=== PATIENT | female | born 1955 | race Caucasian/White ===

== ENCOUNTER 2023-07-29 06:35 | Emergency (ER) | payer OTHER, SELFPAY ==
[2023-07-29] VITALS (7 sets, daily range): BP systolic 117–164; BP diastolic 68–86
--- NOTE | 2023-07-29 06:48 | ED.GENMED ---
History of Present Illness
<Atif Moulton Jr., PA-C - Last Filed: 07/29/23 12:07>
General
Chief Complaint: Abdominal Pain
Source: patient and spouse
Exam Limitations: none
Time Seen by Provider: 07/29/23 07:02
Nursing documentation reviewed up to this point in time: agreed with
History of Present Illness
History of Present Illness:
67-year-old female with past medical history of hypertension GERD deafness presenting to the emergency department today with concerns of right-sided abdominal pain associated burning as well since last night. Not particularly after any specific
meal has associated nausea no vomiting. No changes in bowel movements. Has had some intermittent symptoms similar in the past. Claims this is slightly worse than usual.
<Arik Felton DO - Last Filed: >
Travel History
Have you had any contact with someone who has COVID-19?: No
Do you have any symptoms of coronavirus? Fever > 100 degrees, chills, cough, shortness of breath, sore throat, loss of taste or smell, muscle aches, or headache?: No
Review of Systems
<Atif Moulton Jr., PA-C - Last Filed: 07/29/23 12:07>
Review of Systems
Allergies reviewed?: Yes
All Other Systems: ROS reviewed and negative except as documented in HPI and ROS
Phy Exam
<Atif Moulton Jr., PA-C - Last Filed: 07/29/23 12:07>
Physical Exam
Physical Exam:
GENERAL: Alert , in no apparent distress
EYE: pupils equal and reactive
NECK: Supple, no significant adenopathy.
ENT: o/p clr, mmm.
CARDIAC: Regular rate and rhythm .
LUNGS: Clear breath sounds bilaterally, no acute respiratory distress, no wheezes/rales/rhonchi
ABDOMEN: Tender palpation to the right side of the abdomen mainly to the right mid abdomen and right lower minimal discomfort to the right upper minimal pain to the epigastric region no pain to the left side of the abdomen.
NEUROLOGICAL: Alert and oriented, no focal neuro deficits
SKIN: Warm and dry, skin intact.
MUSCULOSKELETAL: No edema, well perfused.
PSYCH: Normal and appropriate interaction.
Course
<Atif Moulton Jr., PA-C - Last Filed: 07/29/23 12:07>
Orders/Labs/Results
Orders:
Orders
07/29/23 06:47
Electrocardiogram (*1) Urgent
Reason for Study: Abdominal Pain
EKG- Treatment ONCE
07/29/23 07:25
CT Abd/pel W Iv And Oral Contr Urgent
Comment:
Reason For Exam: right sided abd pain, s/p appy
0.9% Sodium Chloride 1000 ml [Nss] 1,000 ml IV BOLUS
Famotidine [Pepcid] 20 mg IV NOW STA
Iohexol [Omnipaque] See Protocol PO NOW STA
Ondansetron Injectable [Zofran] 4 mg IV NOW STA
07/29/23 07:56
Complete Blood Count/With Diff Urgent
Comprehensive Metabolic Panel Urgent
Lipase Urgent
07/29/23 09:20
Urinalysis Reflex To Culture Urgent
Date Specimen was Collected: 07/29/23
Time Specimen was Collected: 08:51
Urine Microscopic Reflex Cult Urgent
Urine Culture Urgent
FREDY Source: U
Specimen Description:
Date Specimen was Collected: 07/29/23
Time Specimen was Collected: 08:51
07/29/23 11:47
Mag Hydrox/Al Hydrox/Simeth [Maalox] 30 ml Phenobarb/Hyoscy/Atropine/Scop [] 10 ml PO NOW
07/29/23 11:57
Mag Hydrox/Al Hydrox/Simeth [Maalox] 30 ml .ROUTE .[facility]
Phenobarb/Hyoscy/Atropine/Scop [] 10 ml .ROUTE .[facility] ONE
Abnormal Lab Results
07/29/23 07/29/23
07:56 09:20
Hgb 11.1 L g/dL
(12.0-16.0)
Hct 35.7 L %
(37.0-47.0)
MCV 76.8 L fL
(81.0-99.0)
MCH 23.9 L pg
(27.0-31.0)
MCHC 31.1 L g/dL
(33.0-37.0)
RDW 15.5 H %
(11.5-14.5)
Absolute Neuts (auto) 8.0 H 10^3/uL
(1.4-6.5)
Absolute Monos (auto) 1.0 H 10^3/uL
(0.1-0.6)
Neutrophils % 76.1 H %
(42.2-75.2)
Lymphocytes % 12.4 L %
(20.5-51.1)
Monocytes % 9.8 H %
(1.7-9.3)
Glucose 111 H mg/dl
(70-99)
Leukocyte Esterase Rfl 1+ A
(Negative)
07/29/23 07:56
07/29/23 07:56
Vital Signs
Initial and Last Documented VS:
Initial Vital Signs
Pulse
104
07/29/23 06:38
Last Documented Vital Signs
Temp Pulse Resp BP Pulse Ox
98.1 F 75 16 118/68 97
07/29/23 06:44 07/29/23 10:20 07/29/23 10:20 07/29/23 10:20 07/29/23 10:20
<Arik Felton, DO - Last Filed: >
Orders/Labs/Results
Orders:
Orders
07/29/23 06:47
Electrocardiogram (*1) Urgent
Reason for Study: Abdominal Pain
EKG- Treatment ONCE
07/29/23 07:25
CT Abd/pel W Iv And Oral Contr Urgent
Comment:
Reason For Exam: right sided abd pain, s/p appy
0.9% Sodium Chloride 1000 ml [Nss] 1,000 ml IV BOLUS
Famotidine [Pepcid] 20 mg IV NOW STA
Iohexol [Omnipaque] See Protocol PO NOW STA
Ondansetron Injectable [Zofran] 4 mg IV NOW STA
07/29/23 07:56
Complete Blood Count/With Diff Urgent
Comprehensive Metabolic Panel Urgent
Lipase Urgent
07/29/23 09:20
Urinalysis Reflex To Culture Urgent
Date Specimen was Collected: 07/29/23
Time Specimen was Collected: 08:51
Urine Microscopic Reflex Cult Urgent
Urine Culture Urgent
FREDY Source: U
Specimen Description:
Date Specimen was Collected: 07/29/23
Time Specimen was Collected: 08:51
07/29/23 11:47
Mag Hydrox/Al Hydrox/Simeth [Maalox] 30 ml Phenobarb/Hyoscy/Atropine/Scop [] 10 ml PO NOW
07/29/23 11:57
Mag Hydrox/Al Hydrox/Simeth [Maalox] 30 ml .ROUTE .[facility]
Phenobarb/Hyoscy/Atropine/Scop [] 10 ml .ROUTE .[facility]
Abnormal Lab Results
07/29/23 07/29/23
07:56 09:20
Hgb 11.1 L g/dL
(12.0-16.0)
Hct 35.7 L %
(37.0-47.0)
MCV 76.8 L fL
(81.0-99.0)
MCH 23.9 L pg
(27.0-31.0)
MCHC 31.1 L g/dL
(33.0-37.0)
RDW 15.5 H %
(11.5-14.5)
Absolute Neuts (auto) 8.0 H 10^3/uL
(1.4-6.5)
Absolute Monos (auto) 1.0 H 10^3/uL
(0.1-0.6)
Neutrophils % 76.1 H %
(42.2-75.2)
Lymphocytes % 12.4 L %
(20.5-51.1)
Monocytes % 9.8 H %
(1.7-9.3)
Glucose 111 H mg/dl
(70-99)
Leukocyte Esterase Rfl 1+ A
(Negative)
07/29/23 07:56
07/29/23 07:56
Vital Signs
Initial and Last Documented VS:
Initial Vital Signs
Pulse
104
07/29/23 06:38
Last Documented Vital Signs
Temp Pulse Resp BP Pulse Ox
98.1 F 75 16 118/68 97
07/29/23 06:44 07/29/23 10:20 07/29/23 10:20 07/29/23 10:20 07/29/23 10:20
<Atif Moulton Jr., PA-C - Last Filed: 07/29/23 12:07>
MDM/Problems Addressed
MDM/Problems Addressed:
67-year-old female presenting to the emergency department today with concerns of mainly right-sided abdominal pain starting last night associated nausea no vomiting no changes in bowel movements. Arrival here blood pressure elevated heart rate
slightly elevated but improving without specific treatment here labs unremarkable. CT scan ordered for further assessment due to reproducible right-sided abdominal pain. CT scan without emergent findings labs unremarkable urinalysis normal plan
for close GI follow-up return precautions given.
<Atif Moulton Jr., PA-C - Last Filed: 07/29/23 12:07>
*Critical Care Note
Total Time (30-74mins, 75-104mins- exclusive of procedures): Not Applicable
ED Attending Note
<Arik Felton DO - Last Filed: >
-
Portions of this chart may have been created with voice recognition software.� Occasional wrong word or��sound alike� substitutions may have occurred due to the inherent limitations of voice recognition software.
Discharge Plan
Departure
Patient Disposition: Home (Routine Discharge)
Date of Disposition: 07/29/23
Time of Disposition: 12:05
Patient with high blood pressure during this ER visit?: No
Condition: Good
Covid-19: Not Applicable
Discharge Problem:
Acute upper abdominal pain
Instructions: Abdominal Pain
Prescriptions:
New
famotidine 20 mg tablet
20 mg PO HS Qty: 14 0RF
polyethylene glycol 3350 [Miralax] 17 gram/dose powder
4 g PO DAILY Qty: 119 0RF
Referrals:
Eran Askew MD [Family Provider] -
Activity Restrictions/Additional Instructions:
You can to the emergency department today with concerns of upper abdominal discomfort. Here you had a reassuring evaluation without emergent findings. Please take MiraLAX to help with constipation. Please additionally take famotidine at night to
help with additional symptoms. Please follow closely with your GI doctor. Return to the emergency department for any worsening, new or concerning symptoms.
Interventions
Interventions:
*Risk Screen - Suicide Last Done: 07/29/23 06:38
*General Assessment Last Done: 07/29/23 09:33
*Neglect/Abuse Screening Last Done: 07/29/23 06:38
ED- Fall Risk Assessment Last Done: 07/29/23 09:33
UJ-Xmvvkg-Fxgyqrnpai Assessment Last Done: 07/29/23 09:33
Discharge Date and Time
Print Language: [id number]
[2023-07-29] MEDS: OMNIPAQUE 50 ML PO (07:57)
[2023-07-29] MEDS: ZOFRAN 4 MG IV (07:57)
[2023-07-29] MEDS: PEPCID 20 MG IV (07:57)
[2023-07-29] MEDS: NSS 1000 IV (07:57)
[2023-07-29 08:14] LABS: % Basophils 0.6 % (0-2); % Eosinophils 0.8 % (0-6); % Immature Granulocytes 0.3 % (0-0.5); % Lymphocytes 12.4 % (20.5-51.1); % Monocytes 9.8 % (1.7-9.3); % Neutrophils 76.1 % (42.2-75.2); Absolute Basophils 0.1 10^3/uL (0-0.2); Absolute Eosinophils 0.1 10^3/uL (0-0.7); Absolute Lymphocytes 1.3 10^3/uL (1.2-3.4); Hematocrit 35.7 % (37.0-47.0); Hemoglobin 11.1 g/dL (12.0-16.0); Mean Corp Hgb Conc. 31.1 g/dL (33.0-37.0); Mean Corpuscular Hgb 23.9 pg (27.0-31.0); Mean Corpuscular Volume 76.8 fL (81.0-99.0); Mean Platelet Volume 9.9 fL (7.4-10.4); Nucleated Red Blood Cells % 0 %; Platelet Count 354 10^3/uL (130-400); Red Blood Cell Count 4.65 10^6/uL (4.20-5.40); Red Cell Dist. Width 15.5 % (11.5-14.5); White Blood Cell Count 10.5 10^3/uL (4.8-10.8)
[2023-07-29 08:28] LABS: ALT (SGPT) 19 U/L (0-35); AST (SGOT) 27 U/L (14-36); Albumin 4.1 g/dl (3.5-5.0); Alkaline Phosphatase 51 U/L (38-126); Blood Urea Nitrogen 15 mg/dl (7-17); Calcium 9.6 mg/dl (8.4-10.2); Carbon Dioxide 26 mmol/L (22-30); Chloride 106 mmol/L (98-107); Glucose 111 mg/dl (70-99); Lipase 181 U/L (23-300); Potassium 4.6 mmol/L (3.5-5.1); Sodium 136 mmol/L (135-145); Total Bilirubin 0.3 mg/dl (0.2-1.3); Total Protein 7.4 g/dl (6.3-8.2); eGFR > 60.00
[2023-07-29 09:41] LABS: Urine Albumin Negative (Neg - Trace); Urine Bilirubin Negative (Negative); Urine Character Clear (Clear); Urine Color Yellow; Urine Glucose Negative (Negative); Urine Ketone Negative (Negative); Urine Leukocyte 1+ (Negative); Urine Nitrite Negative (Negative); Urine Occult Blood Negative (Negative); Urine Urobilinogen Negative (Neg - 1+)
[2023-07-29 10:08] LABS: Urine Mucus Few; Urine Urothelial Cell 16-20 /LPF (FEW)
[2023-07-29 10:09] LABS: Urine Amorphous Seen; Urine Granular Cast 0-2 /LPF (0); Urine Hyaline Cast 0-2 /LPF (0-2)
[2023-07-29 10:13] LABS: Urine Red Blood Cell 0-2 /HPF (0-2)
[2023-07-29] MEDS: MAALOX 40 PO (12:01)
== END 2023-07-29 12:36 | disposition home or self-care (01) ==
LOC: EMR 06:35
PROVIDERS: Physician Assistant; EMERGENCY PHYSICIAN Emergency Medicine; FAMILY PHYSICIAN Family Medicine
DX: R10.10 Upper abdominal pain, unspecified (principal); I10 Essential (primary) hypertension; K21.9 Gastro-esophageal reflux disease without esophagitis
CPT/HCPCS: 99285; 96374; 96375; 96361; 74177; 80053; 81003; 81015; 83690; 85025; 87086; 93005; Q9967

== ENCOUNTER → 2023-09-10 10:27 | Outpatient (REF) | payer OTHER, SELFPAY | LOC: HWRAD 10:27 | PROVIDERS: ATTENDING PHYSICIAN Nurse Practitioner; FAMILY PHYSICIAN Family Medicine | DX: N81.2 Incomplete uterovaginal prolapse (principal); R35.0 Frequency of micturition | CPT/HCPCS: 76770; 76856 ==

== ENCOUNTER → 2023-11-14 12:06 | Outpatient (REF) | payer OTHER, SELFPAY | LOC: HWWDC 12:06 | PROVIDERS: ATTENDING PHYSICIAN Obstetrics & Gynecology; FAMILY PHYSICIAN Family Medicine | DX: Z12.31 Encounter for screening mammogram for malignant neoplasm of breast (principal) | CPT/HCPCS: 77063; 77067 ==

== ENCOUNTER → 2023-12-05 07:43 | Outpatient (REF) | payer OTHER, SELFPAY | LOC: WDC 07:43 | PROVIDERS: ATTENDING PHYSICIAN Obstetrics & Gynecology; FAMILY PHYSICIAN Family Medicine | DX: R92.2 Inconclusive mammogram (principal) | CPT/HCPCS: 76641 ==